=== PATIENT | male | born 1960 | race African-American/Black ===

== ENCOUNTER 2023-08-04 14:29 | Observation (INO) | payer OTHER ==
[2023-08-04] MEDS ORDERED: Ondansetron PF 4 MG/2 ML Vial IVP PRN (17:06)
[2023-08-04] MEDS ORDERED: Acetaminophen 325 MG TAB PO PRN (17:06)
[2023-08-04 17:32] LABS: Troponin I 0.051 ng/mL (< 0.028)
[2023-08-04 18:23] VITALS: BMI 43.8
[2023-08-04] MEDS ORDERED: FLU VACC QS2023-24(6MOS UP)/PF 60 MCG/0.5 ML SYRINGE IM ONE (18:30)
[2023-08-04 18:52] LABS: Troponin I 0.058 ng/mL (< 0.028)
[2023-08-04] MEDS ORDERED: Atorvastatin Calcium 40 MG TAB PO SCH (21:00)
[2023-08-04] MEDS: Famotidine 20 MG TAB PO SCH (21:55)
[2023-08-05] MEDS ORDERED: Nitroglycerin 2% Ointment 1 INCH/1 GM Packet TOP SCH (01:00)
[2023-08-05] MEDS ORDERED: Guaifenesin DM 100-10/5 ML UDCUP PO PRN (01:32)
[2023-08-05 05:26] LABS: #Basophils 0.1 10x3/uL (0.0-0.2); #Eosinphils 0.3 10x3/uL (0.0-0.5); #Monocytes 0.5 10x3/uL (0.0-1.1); #Neutrophils 2.7 10x3/uL (1.5-8.4); %Basophils 0.8 % (0.0-2.0); %Eosinophils 4.8 % (0.0-6.0); %Lymphocytes 41.2 % (18.0-47.0); %Monocytes 8.4 % (0.0-10.0); %Neutrophils 44.8 % (40.0-75.0); Hematocrit 31.9 % (38.8-50.0); Hemoglobin 10.6 g/dL (13.5-17.5); Mean Corpuscular HGB CONC 33.2 g/dL (32.0-36.0); Mean Corpuscular Hemoglobin 27.7 pg (27.0-33.0); Mean Corpuscular Volume 83.3 fl (81.2-95.1); Mean Platelet Volume 8.8 fl (7.4-10.4); Platelet Count 497 10x3/uL (150-450); RBC Distribution Width 13.8 % (11.5-14.5); Red Blood Cell (RBC) Count 3.83 10x6/uL (4.32-5.72); White Blood Cell (WBC) Count 6.1 10x3/uL (3.5-10.5)
[2023-08-05 05:27] LABS: Anion Gap 10 mmol/L (10-20); BUN (Urea Nitrogen) 12 mg/dL (8.4-25.7); Calc. Creatinine Clearance 122 mL/min (70-130); Calcium 8.8 mg/dL (7.8-10.44); Carbon Dioxide 27 mmol/L (23-31); Chloride 107 mmol/L (98-107); Estimated GFR 73; Glucose 104 mg/dL (80-115); Potassium 4.2 mmol/L (3.5-5.1); Sodium 140 mmol/L (136-145)
[2023-08-05] MEDS ORDERED: NIFEdipine XL 90 MG ER.TAB PO SCH (09:00)
[2023-08-05] MEDS ORDERED: Aspirin Chewable 81 MG TAB PO SCH (09:00)
[2023-08-05] MEDS: Famotidine 20 MG TAB PO SCH (10:03)
[2023-08-05 11:53] LABS: Troponin I 0.058 ng/mL (< 0.028)
[2023-08-05] MEDS ORDERED: cloNIDine 0.1 MG TAB PO SCH (14:00)
[2023-08-05 17:03] VITALS: BP 148/76; TEMP 99.2
== END 2023-08-05 18:36 | disposition home or self-care (01) ==
LOC: CSHTELE 14:29
PROVIDERS: ADMIT Internal Medicine; ATTEND Internal Medicine
DX: R07.2 Precordial pain (principal); I10 Essential (primary) hypertension; I21.4 Non-ST elevation (NSTEMI) myocardial infarction; F17.210 Nicotine dependence, cigarettes, uncomplicated; D64.9 Anemia, unspecified; F20.9 Schizophrenia, unspecified; Z98.890 Other specified postprocedural states; Z79.899 Other long term (current) drug therapy; Z79.82 Long term (current) use of aspirin
CPT/HCPCS: 36415; 80048; 84484; 85025; 93005; 93010; 93306; 96372; G0378; J1650

== ENCOUNTER 2023-08-14 08:59 | Observation (INO) | payer OTHER ==
[2023-08-14] MEDS ORDERED: Guaifenesin DM 100-10/5 ML UDCUP PO PRN (09:36)
[2023-08-14] MEDS ORDERED: Ondansetron PF 4 MG/2 ML Vial IVP PRN (09:36)
[2023-08-14] MEDS ORDERED: HYDROcodone/Acetaminophen 5/325 mg Tablet PO PRN (09:36)
[2023-08-14] MEDS ORDERED: Acetaminophen 325 MG TAB PO PRN (09:36)
[2023-08-14] MEDS ORDERED: Nitroglycerin 0.4 MG TAB (25 Tab Bottle) SL PRN (09:36)
[2023-08-14] MEDS ORDERED: Senokot S 8.6-50 MG TAB PO PRN (09:36)
[2023-08-14 10:40] LABS: Troponin I 0.057 ng/mL (< 0.028)
[2023-08-14 11:57] VITALS: BP 127/82; TEMP 97.8
[2023-08-14 15:25] LABS: Troponin I 0.056 ng/mL (< 0.028)
[2023-08-14] MEDS ORDERED: Famotidine 20 MG TAB PO SCH (21:00)
[2023-08-15] MEDS ORDERED: Aspirin Chewable 81 MG TAB PO SCH (09:00)
== END 2023-08-14 14:34 | disposition home or self-care (01) ==
LOC: CSHTELE 08:59 → INTOOBSV 08:59
PROVIDERS: ADMIT Student in an Organized Health Care Education/Training Program; ATTEND Hospitalist
DX: R07.89 Other chest pain (principal); M25.461 Effusion, right knee; I10 Essential (primary) hypertension; F17.290 Nicotine dependence, other tobacco product, uncomplicated; Z96.651 Presence of right artificial knee joint; Z79.82 Long term (current) use of aspirin
CPT/HCPCS: 36415; 93005; 93010; 93306